=== PATIENT | male | born 1960 | race African-American/Black ===

== ENCOUNTER 2016-05-12 17:13 | Emergency (ER) | payer MEDICARE, OTHER ==
[~2016-05-12] VITALS: Ht 180.3 cm; Wt 94.0 kg
[~2016-05-12 17:13] MED LIST: ASPI-628 PO; CARV6.252 PO; CINA30TA PO; METO25TA6 PO; MIRT30TA6 PO; NIAC500T6 PO; PRAV40TA PO; SEVE800T7 PO; [UNRECOGNIZED DRUG - OTHER]
[2016-05-12 17:21] VITALS: BP 101/68; PULSE 82; RESP 20; O2SAT 95
--- NOTE | 2016-05-12 17:53 | DRSVH ---
PROCEDURE: X-RAY CHEST ONE VIEW, PORTABLE ([id number]) INDICATIONS: CHEST PAIN TECHNIQUE: One view of the chest was acquired. COMPARISON: [facility], , CHEST 1VW (PORTABLE), 03/31/2014, 4:36. [facility], , CHEST 1VW (PORTABLE), 04/11/2014, 23:25. FINDINGS: Surgical changes and devices: None. Lungs and pleura: Bibasilar scars or atelectasis. No pleural effusions or pneumothorax. Mediastinum: Mediastinal contours appear normal. Heart size is normal. Bones and chest wall: No suspicious bony lesions. Overlying soft tissues appear unremarkable. IMPRESSION: Bibasilar scars or atelectasis. Superimposed acute process cannot be exclude. Recommend c linical correlation. Dictated by: Jesus Logan M.D. on 05/12/2016 at 17:51 Approved by: Jeuss Logan M.D. on 05/12/2016 at 17:52
[2016-05-12 17:56] LABS: BASOPHILS % (AUTO) 0.6 % (0-3); EOSINOPHILS % (AUTO) 3.2 % (0-5); MONOCYTES % (AUTO) 22.7 % (4-12); Mean Corpuscular Hemoglobin 32.3 pg (27.0-35.0); Mean Corpuscular Volume 99.5 fL (81-100); NEUTROPHILS % (AUTO) 48.5 % (40-74); Platelet Count 109 bil/L (150-400)
--- NOTE | 2016-05-12 17:59 | ED.REPORT ---
HPI-Chest Pain 40 and Over Date of Service May 12, 2016 ED Provider: Dr. Mason Boyce D.O. A 55 year old male with a medical history including paroxysmal supraventricular tachycardia, hypertension, hyperlipidemia, and ESRD on dialysis s/p cardiac ablation presents to the ED from Urgent Care with left-sided chest pain onset two hours prior to arrival. The pain is rated 4/10 and described as "a lucy stabbing into his chest," with radiation to his back and left shoulder. The patient also reports shortness of breath. He was given ASA x4 at . The patient 's director transportation, Dr. Godfrey, recently changed the patient's medication from metoprolol to carvedilol in order to wean the patient off beta blockers. His symptoms have improved in the ED. The patient has had similar symptoms in the past. Nursing Notes Stated Complaint: CHEST PAINS Chief Complaint: Chest Pain Nursing Notes Reviewed: Yes Allergies: Coded Allergies: iron dextran complex (Verified Allergy, Unknown, Anaphylaxis, 03/28/14) Scheduled Aspirin (Aspir 81) 81 Mg Tablet.dr 81 MG PO DAILY Carvedilol (Carvedilol) 6.25 Mg Tablet 12.5 MG PO BID Cinacalcet (Sensipar) 30 Mg Tablet 30 MG PO DAILY Metoprolol Tartrate (Metoprolol Tartrate) 25 Mg Tablet 25 MG PO DAILYAC Mirtazapine (Mirtazapine) 30 Mg Tablet 30 MG PO HS Niacinamide (Niacinamide) 500 Mg Tablet 500 MG PO BID Pravastatin (Pravastatin) 40 Mg Tablet 40 MG PO DAILY Sevelamer Carbonate (Renvela) 800 Mg Tablet 800 MG PO TID Miscellaneous Medications ([Elaine-Magdi]) General Time Seen by MD: 17:59 Chief Complaint Chest pain Hx Obtained From: Patient Arrived By: Walk-in Sudden in Onset?: Yes Onset Occurred: 1 - 4 hours ago Symptom Duration: Since onset Location: : Chest left Quality: Painful Radiation: : Back: Shoulder left Severity: Current: Mild Severity: Maximum: Moderate Associated with: Reports: Shortness of Breath, Denies: Fever Context Related History: Reports: Hypertension Recent Healthcare: No recent doctor visit Similar Sx Previous: Yes Past Medical History Past Medical History Paroxysmal supraventricular tachycardia End stage renal disease post kidney transplant failure (2008) Shingles B12 Deficiency Reports: Hyperlipidemia, Hypertension Past Surgical History AV fistula in the left arm Kidney transplant (2002) and subsequent removal secondary to transplant failure (2008) Family History Father had a stoke at 36 Mother has hypertension Smoking History Former Smoker Social History Alcohol Use: "Social" Drug Use: Denies drug use Other Social History: Local resident Occupation Teacher Retired software lead Ambulatory Status Independent Review of Systems Constitutional: Denies: Fever Respiratory: Reports: Shortness of breath, Denies: Non-productive cough Cardiovascular: Reports: Chest pain GI: Denies: Vomiting Musculoskeletal: Reports: Back pain, Joint pain (Left shoulder) Complete sys rev & neg: except as marked. Physical Exam Physical Exam Notes: Initial Vital Signs Vital Signs (First) Date Time Temp Pulse Resp B/P Pulse Ox O2 Delivery O2 Flow Rate FiO2 05/12/16 17:21 36.7 82 20 101/68 95 Room Air Initial VS: Reviewed Head / Eyes: Atraumatic, Normocephalic ENT: Conjunctiva normal, No scleral icterus Neck: Supple, Full range of motion Skin: Warm, Dry, No cyanosis Neurologic: Alert, Oriented, Nonfocal Psychiatric: Mood/affect normal, Behavior normal, Normal thought content General/Constitutional: Awake, Alert, No acute distress Respiratory / Chest: Breath sounds NL, Breath sounds = bilat, No respiratory distress Left pectoral tenderness on palpation Cardiovascular: Heart rate NL, Regular rhythm, Heart sounds NL Abdomen: Soft, Non-tender Upper Extremity / MS: Full range of motion, Neurologic intact, Vascular intact Fistula in left arm with palpable thrill Interpretation & Diagnostics Lab Results Interpretation Result Diagram: 05/12/16 1740 05/12/16 1842 Test 05/12/16 17:40 05/12/16 18:42 05/12/16 19:19 White Blood Count 6.9th/mm3 (3.8-10.1) Red Blood Count 4.43mil/mm3 (4.40-5.80) Hemoglobin 14.3g/dL (13.8-17.2) Hematocrit 44.1% (41.0-50.0) Mean Corpuscular Volume 99.5fL (81-100) Mean Corpuscular Hemoglobin 32.3pg (27.0-35.0) Mean Corpuscular Hemoglobin Concent 32.4% (32.0-37.0) Red Cell Distribution Width 17.0% (12.3-15.4) Platelet Count 109bil/L (150-400) Neutrophils (%) (Auto) 48.5% (40-74) Lymphocytes (%) (Auto) 24.7% (14-46) Monocytes (%) (Auto) 22.7% (4-12) Eosinophils (%) (Auto) 3.2% (0-5) Basophils (%) (Auto) 0.6% (0-3) Sodium Level 142mEq/L (134-144) Potassium Level 5.3mEq/L (3.5-5.2) Chloride Level 95mEq/L (97-108) Carbon Dioxide Level 29mmol/L (18-29) Blood Urea Nitrogen 35mg/dL (6-24) Creatinine 13.08mg/dL (0.76-1.27) Estimat Glomerular Filtration Rate 4mL/min (>59) Glucose Level 93mg/dL (60-99) Calcium Level 8.1mg/dL (8.5-10.1) Magnesium Level 2.1mg/dL (1.6-2.6) Total Bilirubin 0.4mg/dL (0.0-1.2) Aspartate Amino Transf (AST/SGOT) 20U/L (0-50) Alanine Aminotransferase (ALT/SGPT) 12U/L (0-44) Alkaline Phosphatase 57U/L (25-150) Troponin T 0.245ug/L (0.0-0.011) Total Protein 8.4g/dL (6.4-8.4) Albumin 4.5g/dL (3.4-5.0) D-Dimer < 0.5mg/L (<0.50) Pulse Oximetry Interpretation Pulse Oximetry: Pulse Ox normal (98%) ECG Interpretation ECG Interpretation: Sinus rhythm rate 79 Left anterior fascicular block No STEMI Time: 17:40 Interpreted by: ED physician Rhythm Strip Interpretation : Time: 18:05 Rhythm Strip Interpretation: Interpreted by me, Rate (79), Normal sinus rhythm X-Ray Chest Interpretation Chest Xray Interpretation: IMPRESSION: Bibasilar scars or atelectasis. Superimposed acute process cannot be exclude. Recommend clinical correlation. Dictated by: Jesus Logan M.D. on 05/12/2016 at 17:51 View: Portable, 1 view Interpretation / Wet Read by: Interpret - Radiologist Re-Eval/Medical Decision Med Decision/Clinical Course I first had the opportunity to take care of Mr. Alberts when he was placed into room #8. After my evaluation he had to be removed to room 12 due to a cardiac arrest patient being placed in resuscitation room. He was essentially pain-free at that time. He did have an elevated troponin. I was unaware of the elevated troponin at that time however. I went back into the new room 12 and talk to him and he was nowhere to be found. Evidently he had taken his monitor leads off and had left. I called the number that was listed on the chart asked them to call me back. I think that he warrants hospital admission to evaluate his chest pain and elevated troponin. If he returns my intention is to admit him to the hospital. Time of Eval: 20:00 Re-Evaluation/Progress Note: Patient has left AMA Discharge & Departure Primary Impression: Chest pain Chest pain type: precordial chest pain Qualified Code: R07.2 - Precordial pain Additional Impressions: Chronic renal failure Chronic kidney disease stage: stage 5 Qualified Code: N18.5 - Chronic kidney disease, stage 5 Elevated troponin Left against medical advice Disposition: AGAINST MEDICAL ADVICE Discharge Condition All VS Reviewed: Yes Condition: Stable Referrals: Virgil Carranza MD (PCP) Inessaibtricia Attestation Portions of this note were transcribed by Augustina Sutton. I, Dr. Boyce, personally performed the history, physical exam, and medical decision-making; I reviewed and confirmed the accuracy of the information in the transcribed note. Signed by: Delilah Lentz, 05/12/2016, 23:04 copies to: Virgil Carranza MD, Todd P DO May 12, 2016 17:59 AUGUSTINA SUTTON May 12, 2016 18:15
[2016-05-12 19:32] LABS: Magnesium 2.1 mg/dL (1.6-2.6)
[2016-05-12 19:43] LABS: TROPONIN T 0.245 ug/L (0.0-0.011)
== END 2016-05-12 19:55 | disposition left against medical advice (07) ==
LOC: SED 17:13
DX: R07.2 Precordial pain (principal); I12.0 Hypertensive chronic kidney disease with stage 5 chronic kidney disease or end stage renal disease; N18.5 Chronic kidney disease, stage 5; R79.89 Other specified abnormal findings of blood chemistry; Z94.0 Kidney transplant status; Z87.891 Personal history of nicotine dependence; Z99.2 Dependence on renal dialysis; Z79.82 Long term (current) use of aspirin; Z88.8 Allergy status to other drugs, medicaments and biological substances
CPT/HCPCS: 36415; 71010; 80053; 83735; 84484; 85025; 85379; 93005; 99285; G0463

== ENCOUNTER 2016-09-19 23:55 | Emergency (ER) | payer MEDICARE, OTHER ==
[~2016-09-19] VITALS: Ht 180.3 cm; Wt 95.0 kg
[2016-09-20 00:03] VITALS: BP 110/68; PULSE 165; RESP 17; O2SAT 99
--- NOTE | 2016-09-20 00:04 | ED.REPORT ---
HPI-Chest Pain 40 and Over Date of Service Sep 20, 2016 ED Provider: Chapin Banks Patient is a 56 year old male with a history of PSVT, DM, HTN, COPD, thyroid disease, kidney transplant, renal failure on dialysis and GERD presenting to the ED c/o chest pain and irregular heart rate onset 30 minutes ago. The pt has a history of multiple cardioversions with adenosine and believes that his symptoms are due to SVT. He was last dialyzed six days ago. Nursing Notes Stated Complaint: CHEST PAIN,RAPID HEART RATE Chief Complaint: Chest Pain Nursing Notes Reviewed: Yes Allergies: Coded Allergies: iron dextran complex (Verified Allergy, Unknown, Anaphylaxis, 09/20/16) Scheduled Aspirin (Aspir 81) 81 Mg Tablet.dr 81 MG PO DAILY Carvedilol (Carvedilol) 6.25 Mg Tablet 12.5 MG PO BID Cinacalcet (Sensipar) 30 Mg Tablet 30 MG PO DAILY Metoprolol Tartrate (Metoprolol Tartrate) 25 Mg Tablet 25 MG PO DAILYAC Mirtazapine (Mirtazapine) 30 Mg Tablet 30 MG PO HS Niacinamide (Niacinamide) 500 Mg Tablet 500 MG PO BID Pravastatin (Pravastatin) 40 Mg Tablet 40 MG PO DAILY Sevelamer Carbonate (Renvela) 800 Mg Tablet 800 MG PO TID Miscellaneous Medications ([Elaine-Magdi]) General Time Seen by MD: 00:03 Chief Complaint Chest pain Hx Obtained From: Patient Arrived By: Walk-in Sudden in Onset?: Yes Onset Occurred: 16 - 30 minutes ago Symptom Duration: Since onset Recent Healthcare: No recent hospitalization, Recent doctor visit Similar Sx Previous: Yes Past Medical History Past Medical History Paroxysmal supraventricular tachycardia End stage renal disease post kidney transplant failure (2008) Shingles B12 Deficiency SVT Reports: COPD, Diabetes mellitus, Hyperlipidemia, Hypertension Reports: Thyroid disease Past Surgical History AV fistula in the left arm Kidney transplant (2002) and subsequent removal secondary to transplant failure (2008) multiple cardioversions with adenosine Family History Father had a stoke at 36 Mother has hypertension Smoking History Former Smoker Social History Alcohol Use: "Social" Drug Use: Denies drug use Other Social History: Local resident Occupation Teacher Retired software maintenance engineer Ambulatory Status Independent Review of Systems Review of Systems Note: irregular, rapid heart rate Cardiovascular: Reports: Chest pain GI: Denies: Abdominal pain, Nausea, Vomiting Musculoskeletal: Denies: Back pain Skin: Denies Rash Complete sys rev & neg: except as marked. Physical Exam Initial Vital Signs Vital Signs (First) Date Time Temp Pulse Resp B/P Pulse Ox O2 Delivery O2 Flow Rate FiO2 09/20/16 00:03 36.4 165 17 110/68 99 Room Air Initial VS: Reviewed General/Constitutional: Awake, Alert Distress / Hydration: Positive: Distress mild Respiratory / Chest: Atraumatic, Breath sounds NL, Breath sounds = bilat, No respiratory distress Cardiovascular: Heart sounds NL, No gallop, No murmurs, No rubs regular, rapid rate Abdomen: Atraumatic, Soft, Non-tender Neck: Atraumatic, Supple, Full range of motion Back: Atraumatic, Full range of motion Lower Extremity / Pelvis / MS: Atraumatic, Full range of motion, No edema Skin: Atraumatic, Color NL, No rash, Warm, Dry Neurologic: Oriented X3, Speech NL, No motor deficits, No sensory deficits Psychiatric: Affect NL, Mood NL Head / Eyes: Atraumatic, Normocephalic, PERRL, EOMI ENT: Atraumatic, Airway patent Mouth: Positive: Mucous membranes dry Upper Extremity / MS: Full range of motion uncomplicated dialysis shunt in left forearm Interpretation & Diagnostics Lab Results Interpretation Result Diagram: 09/20/16 0005 09/20/16 0005 Test 09/20/16 00:05 White Blood Count 7.8th/mm3 (3.8-10.1) Red Blood Count 4.80mil/mm3 (4.40-5.80) Hemoglobin 15.5g/dL (13.8-17.2) Hematocrit 47.9% (41.0-50.0) Mean Corpuscular Volume 99.8fL (81-100) Mean Corpuscular Hemoglobin 32.3pg (27.0-35.0) Mean Corpuscular Hemoglobin Concent 32.4% (32.0-37.0) Red Cell Distribution Width 15.7% (12.3-15.4) Platelet Count 122bil/L (150-400) Neutrophils (%) (Auto) 51.7% (40-74) Lymphocytes (%) (Auto) 28.4% (14-46) Monocytes (%) (Auto) 16.9% (4-12) Eosinophils (%) (Auto) 2.4% (0-5) Basophils (%) (Auto) 0.3% (0-3) Sodium Level 143mEq/L (134-144) Potassium Level 4.6mEq/L (3.5-5.2) Chloride Level 95mEq/L (97-108) Carbon Dioxide Level 26mmol/L (18-29) Blood Urea Nitrogen 30mg/dL (6-24) Creatinine 11.32mg/dL (0.76-1.27) Estimat Glomerular Filtration Rate 5mL/min (>59) Glucose Level 91mg/dL (60-99) Calcium Level 8.8mg/dL (8.5-10.1) Magnesium Level 2.3mg/dL (1.6-2.6) Total Bilirubin 0.3mg/dL (0.0-1.2) Aspartate Amino Transf (AST/SGOT) 31U/L (0-50) Alanine Aminotransferase (ALT/SGPT) 19U/L (0-44) Alkaline Phosphatase 95U/L (25-150) Troponin T 0.204ug/L (0.0-0.011) Total Protein 8.7g/dL (6.4-8.4) Albumin 4.9g/dL (3.4-5.0) ECG Interpretation ECG Interpretation: Supraventricular tachycardia with a rate of 169 Left anterior fascicular block Low voltage, extremity and precordial leads PA: 186 ST depression, probably rate relatedd QRSD: 104 Time: 00:03 Interpreted by: ED physician ECG Interpretation: Sinus rhythm with a rate of 94 Left anterior fascicular block Low voltage precordial leads Time: 00:14 Interpreted by: ED physician X-Ray Chest Interpretation Chest Xray Interpretation: no acute findings Interpretation / Wet Read by: Interpret - ED physician Re-Eval/Medical Decision Med Decision/Clinical Course 56-year-old male presents with recurrent PSVT. He states that 6 mg has never worked and requested 12 mg of adenosine. IV access was obtained and the medication was received from pharmacy. Patient performed a Valsalva maneuver and converted his rhythm.. Reevaluation by EKG agree. No adenosine was require and there were no significant laboratory abnormalities. Has observed and then discharged home. He will follow-up at dialysis as planned on Wednesday. Source of Hx: Old records Time of Eval: 00:10 Re-Evaluation/Progress Note: Rechecked patient to perform cardioversion. Pt did Valsalva maneuver and converted without adenosine. Discussed plan to recheck EKG and await labs. Time of Eval: 02:14 Patient Status: Condition improved Re-Evaluation/Progress Note: Pt rechecked, who is resting comfortably. The diagnosis and plan for discharge are discussed. The pt understands and agrees with the plan. All questions are addressed at this time. Counseled Regarding: Diagnosis, Lab results, Need for follow-up, When/why to return to ED Discharge & Departure Primary Impression: Paroxysmal supraventricular tachycardia Additional Impressions: Chronic renal failure Chronic kidney disease stage: stage 5 Qualified Code: N18.5 - Chronic kidney disease, stage 5 Elevated troponin Disposition: Home Discharge Condition All VS Reviewed: Yes Condition: Improved Patient Instructions: Supraventricular Tachycardia (ED) Additional Instructions: Your tachycardia converted prior to receiving the adenosine. Good job! Your other labs are as expected with no significant electrolyte abnormalities. Return as needed for recurrent tachycardia. Referrals: Carlos Godfrey MD (PCP) Delilah Attestation Portions of this note were transcribed by Meena Akhtar & Cornelius Escobar. I, Dr. Banks personally performed the history, physical exam and medical decision-making; I reviewed and confirmed the accuracy of the information in the transcribed note. Signed by: Meena Akhtar & Delilah Bustamante, 09/20/2016 and 02:58. copies to: Carlos Godfrey MD, Howard L MD Sep 20, 2016 00:04 Meena Akhtar Sep 20, 2016 00:15 CORNELIUS ESCOBAR Sep 20, 2016 02:37
[2016-09-20] MEDS ORDERED: Adenosine 3 mg/mL 2 mL Inj IVPUSH ONE (00:05)
[2016-09-20 00:12] VITALS: BP 100/72; PULSE 97; RESP 14; O2SAT 100
[2016-09-20 00:15] LABS: BASOPHILS % (AUTO) 0.3 % (0-3); EOSINOPHILS % (AUTO) 2.4 % (0-5); MONOCYTES % (AUTO) 16.9 % (4-12); Mean Corpuscular Hemoglobin 32.3 pg (27.0-35.0); Mean Corpuscular Volume 99.8 fL (81-100); NEUTROPHILS % (AUTO) 51.7 % (40-74); Platelet Count 122 bil/L (150-400)
[2016-09-20 00:36] VITALS: BP 97/65; PULSE 85; RESP 11; O2SAT 95
[2016-09-20 00:56] LABS: Magnesium 2.3 mg/dL (1.6-2.6)
[2016-09-20 01:04] LABS: TROPONIN T 0.204 ug/L (0.0-0.011)
[2016-09-20 01:29] VITALS: BP 96/52; PULSE 88; RESP 14; O2SAT 98
[2016-09-20 02:27] VITALS: BP 96/52; PULSE 88; RESP 14; O2SAT 98
--- NOTE | 2016-09-20 09:40 | DRSVH ---
PROCEDURE: X-RAY CHEST ONE VIEW, PORTABLE ([id number]) INDICATIONS: PSVT TECHNIQUE: One view of the chest was acquired. COMPARISON: None. FINDINGS: Surgical changes and devices: None. Lungs and pleura: No pleural effusions or pneumothorax. Lungs are clear. Mediastinum: Mediastinal contours appear normal. Heart size is normal. Bones and chest wall: No suspicious bony lesions. Overlying soft tissues appear unremarkable. Late ral curvature of the spine IMPRESSION: No acute disease Dictated by: Glen Zapata M.D. on 09/20/2016 at 9:37 Approved by: Glen Zapata M.D. on 09/20/2016 at 9:38
== END 2016-09-20 02:28 | disposition home or self-care (01) ==
LOC: SED 23:55
DX: I47.1 Supraventricular tachycardia (principal); I12.0 Hypertensive chronic kidney disease with stage 5 chronic kidney disease or end stage renal disease; N18.6 End stage renal disease; R79.89 Other specified abnormal findings of blood chemistry; E11.22 Type 2 diabetes mellitus with diabetic chronic kidney disease; J44.9 Chronic obstructive pulmonary disease, unspecified; E07.9 Disorder of thyroid, unspecified; K21.9 Gastro-esophageal reflux disease without esophagitis; E78.5 Hyperlipidemia, unspecified; Z98.890 Other specified postprocedural states; Z94.0 Kidney transplant status; Z99.2 Dependence on renal dialysis; Z87.891 Personal history of nicotine dependence; Z79.82 Long term (current) use of aspirin; Z88.8 Allergy status to other drugs, medicaments and biological substances